=== PATIENT | female | born 1975 | race Caucasian/White ===

== ENCOUNTER → 2020-03-06 | Outpatient (CLI) | payer OTHER ==
[~2020-03-06] MED LIST: IOHEXOL 350 MG/ML 100 ML VIAL. IV ONE
--- NOTE | 2020-03-07 06:55 | RAD ---
EXAM: CT chest with contrast - pulmonary embolus protocol CLINICAL HISTORY: Chest pain, SHORT OF AIR FOR A WEEK COMPARISON: None. TECHNIQUE: CT of the chest following the administration of intravenous contrast during the pulmonary arterial phase. Axial, coronal and sagittal reformatted images were generated including MIP images. ---PQRS compliance statement - One or more of the following individualized dose reduction techniques were utilized for this study: 1. Automated exposure control 2. Adjustment of the mA and/or kV according to patient size 3. Use of iterative reconstruction technique--- FINDINGS: CHEST: Diagnostic quality: Adequate. Pulmonary emboli: None seen Right heart strain: None Pulmonary arteries: Normal in caliber. Heart is not enlarged. No pericardial effusion. No mediastinal or hilar lymphadenopathy. Prominent left axillary lymph nodes are seen. Borderline enl arged left axillary lymph node measures 1.4 x 1.2 cm. Minimal anterior mediastinal soft tissue densit y likely residual thymus. No pleural effusion or pneumothorax. Dependent opacities in the lower lobes likely atelectasis. 4 mm hypodense right thyroid nodule is seen. Visualized Upper abdomen: Unremarkable Bones: No aggressive osseous lesion is seen. IMPRESSION: 1. No evidence for acute pulmonary embolus. 2. A few mildly prominent to borderline enlarged left axillary lymph nodes are seen. Although these may be reactive, underlying metastatic disease, such as from left breast cancer, is not excluded. 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 Electronically signed by: Fran Aguilar MD (03/07/2020 6:52 AM) [facility]
== END ==
LOC: CT 17:14
PROVIDERS: ATTEND Specialist
DX: E04.1 Nontoxic single thyroid nodule (principal); R07.89 Other chest pain
CPT/HCPCS: 71275; Q9967